=== PATIENT | male | born 1985 | race Caucasian/White ===

== ENCOUNTER 2020-04-18 04:33 | Emergency (ER) | payer OTHER ==
[~2020-04-18] VITALS: Ht 177.8 cm; Wt 122.5 kg
[2020-04-18 05:29] LABS: ABSOLUTE NEUTROPHILS 5.4 thou/uL (1.4-8.2); BASOPHILS 0.6 % (0.0-2.0); EOSINOPHILS 3.1 % (0.0-3.0); HEMATOCRIT 42.1 % (42.0-52.0); HEMOGLOBIN 13.7 gm/dL (14.0-18.0); LYMPHOCYTES 23.3 % (24.0-44.0); MCH 28.6 pg (26.0-34.0); MCHC 32.6 g/dL (28.0-37.0); MCV 87.5 fL (80.0-100.0); MONOCYTES 11.3 % (1.0-8.0); PLATELET COUNT 325 thou/uL (150-400); POLYS 61.7 % (36.0-66.0); RBC 4.81 mil/uL (4.50-6.00); RDW 13.3 % (10.5-14.5); WBC 8.7 thou/uL (4.0-11.0)
[2020-04-18 05:41] LABS: CALCIUM 8.9 mg/dL (8.5-10.1); CREATININE 1.1 mg/dL (0.7-1.3)
[2020-04-18 05:46] LABS: ALBUMIN 3.7 g/dL (3.4-5.0); TOTAL BILIRUBIN 0.3 mg/dL (0.2-1.0); TOTAL PROTEIN 7.5 g/dL (6.4-8.2)
[2020-04-18 06:38] LABS: URINE BILIRUBIN NEGATIVE (Negative); URINE BLOOD 1+ (Negative); URINE CLARITY CLEAR; URINE COLOR YELLOW; URINE GLUCOSE-RANDOM* NEGATIVE (Negative); URINE KETONES NEGATIVE (Negative); URINE LEUKOCYTES-REFLEX NEGATIVE (Negative); URINE NITRITE-REFLEX NEGATIVE (Negative); URINE PROTEIN (DIPSTICK) NEGATIVE (Negative); URINE SPECIFIC GRAVITY >= 1.030 (1.005-1.035); URINE UROBILINOGEN 0.2 E.U./dl (0.2-1.0)
[2020-04-18 07:11] LABS: BACTERIA-REFLEX 1-9 Few /HPF (None Seen); CASTS None Seen /LPF (None Seen); MUCUS >6 Heavy strn/LPF (None Seen); SQUAMOUS 0-3 Few /LPF (0-3); URINE RBC 3-10 Few /HPF (0-2); URINE WBC-REFLEX 0-5 Rare /HPF (0-5)
[2020-04-18 07:12] LABS: CALCIUM OXALATE 4-10 Moderate /LPF (None Seen)
[2020-04-18] MEDS ORDERED: ZOFRAN ODT4 MG PO (07:41)
[2020-04-18] MEDS ORDERED: NORCO 5-325 TA1 EAC2 PO (07:41)
[2020-04-18] MEDS ORDERED: SENNA-DOCUSATE1 EAC1 PO (07:41)
[2020-04-18] MEDS ORDERED: IBUPROFEN 800800 M1 PO (07:41)
[2020-04-18] MEDS ORDERED: FLOMAX0.4 MG PO (07:41)
[2020-04-18 08:06] VITALS: BP 104/65
== END 2020-04-18 08:07 | disposition home or self-care (01) ==
LOC: ER 04:33
PROVIDERS: Emergency Medicine
DX: N20.1 Calculus of ureter (principal); Z90.49 Acquired absence of other specified parts of digestive tract; Z88.1 Allergy status to other antibiotic agents

== ENCOUNTER 2020-06-11 10:33 | Emergency (ER) | payer OTHER ==
[~2020-06-11] VITALS: Ht 177.8 cm; Wt 127.0 kg
[~2020-06-11 10:33] MED LIST: FLOMAX0.4 MG PO; IBUPROFEN 800800 M1 PO; NORCO 5-325 TA1 EAC2 PO; SENNA-DOCUSATE1 EAC1 PO; ZOFRAN ODT4 MG PO
[2020-06-11 11:35] LABS: URINE BILIRUBIN NEGATIVE (Negative); URINE BLOOD 1+ (Negative); URINE CLARITY TURBID; URINE COLOR YELLOW; URINE GLUCOSE-RANDOM* NEGATIVE (Negative); URINE KETONES NEGATIVE (Negative); URINE LEUKOCYTES-REFLEX NEGATIVE (Negative); URINE NITRITE-REFLEX NEGATIVE (Negative); URINE PROTEIN (DIPSTICK) TRACE (Negative); URINE SPECIFIC GRAVITY >= 1.030 (1.005-1.035); URINE UROBILINOGEN 0.2 E.U./dl (0.2-1.0)
[2020-06-11 11:36] LABS: ABSOLUTE NEUTROPHILS 13.5 thou/uL (1.4-8.2); BASOPHILS 0.3 % (0.0-2.0); EOSINOPHILS 0.2 % (0.0-3.0); HEMATOCRIT 42.4 % (42.0-52.0); HEMOGLOBIN 13.9 gm/dL (14.0-18.0); LYMPHOCYTES 7.8 % (24.0-44.0); MCH 28.6 pg (26.0-34.0); MCHC 32.9 g/dL (28.0-37.0); MONOCYTES 8.8 % (1.0-8.0); PLATELET COUNT 348 thou/uL (150-400); POLYS 82.9 % (36.0-66.0); RBC 4.87 mil/uL (4.50-6.00); RDW 13.4 % (10.5-14.5); WBC 16.3 thou/uL (4.0-11.0)
[2020-06-11 11:54] LABS: CALCIUM 9.1 mg/dL (8.5-10.1); CREATININE 1.2 mg/dL (0.7-1.3); POTASSIUM 4.2 mmol/L (3.5-5.1)
[2020-06-11 11:58] LABS: TOTAL BILIRUBIN 0.4 mg/dL (0.2-1.0); TOTAL PROTEIN 7.7 g/dL (6.4-8.2)
[2020-06-11 12:00] LABS: AMORPHOUS URATES Many /LPF (None Seen); BACTERIA-REFLEX 1-9 Few /HPF (None Seen); CASTS None Seen /LPF (None Seen); SQUAMOUS None Seen /LPF (0-3); URINE RBC 0-2 Rare /HPF (0-2); URINE WBC-REFLEX None Seen /HPF (0-5)
[2020-06-11] MEDS ORDERED: ONDANSETRON HCL4 M2 PO (14:08)
[2020-06-11] MEDS ORDERED: NORCO 5-325 TA1 EAC2 PO (14:08)
[2020-06-11 14:29] VITALS: BP 134/75
== END 2020-06-11 14:29 | disposition home or self-care (01) ==
LOC: ER 10:33
PROVIDERS: Emergency Medicine
DX: N13.30 Unspecified hydronephrosis (principal); R11.2 Nausea with vomiting, unspecified; Z87.442 Personal history of urinary calculi; Z90.49 Acquired absence of other specified parts of digestive tract; Z79.899 Other long term (current) drug therapy; Z88.1 Allergy status to other antibiotic agents